=== PATIENT | male | born 1955 ===

== ENCOUNTER 2017-07-17 13:52 | Inpatient (IN) | payer OTHER ==
[~2017-07-17] VITALS: Ht 170.2 cm; Wt 68.0 kg
[2017-07-17] MEDS ORDERED: Z GUARD REMEDY PASTE 57 GM TUBE TOP PRN (14:45)
[2017-07-17] MEDS ORDERED: DIPH25CA83 PO (15:15)
[2017-07-17] MEDS ORDERED: ASPI-612 PO (15:15)
[2017-07-17] MEDS ORDERED: BUTA1CAP46 PO (15:15)
[2017-07-17] MEDS ORDERED: ACET-2154 PO (15:15)
[2017-07-17] MEDS ORDERED: RIVA10TA PO (15:15)
[2017-07-17] MEDS ORDERED: HYDR-3326 PO (15:15)
[2017-07-17] MEDS ORDERED: BISA-79 RC (15:15)
[2017-07-17] MEDS ORDERED: HYDR1SYR4 IJ (15:15)
[2017-07-17] MEDS ORDERED: DRON2.5C3 PO (15:15)
[2017-07-17] MEDS ORDERED: ONDA4TAB8 PO (15:15)
[2017-07-17] MEDS ORDERED: MAGN296S PO (15:15)
[2017-07-17] MEDS ORDERED: MAG30ORA GT (15:15)
[2017-07-17] MEDS ORDERED: FERR325T28 PO (15:15)
[2017-07-17] MEDS ORDERED: SENN-18 PO (15:15)
[2017-07-17] MEDS ORDERED: CLON0.1T PO (15:15)
[2017-07-17] MEDS ORDERED: DOCU100T2 PO (15:15)
[2017-07-17] MEDS ORDERED: ZOLP10TA2 PO (15:15)
[2017-07-17] MEDS ORDERED: PANT40TA4 PO (15:15)
--- NOTE | 2017-07-17 16:03 | NUR ---
pt arrived in the unit with ambulance from [facility]. pt vitals stable. pt arrived with an immobilizer.pt was ssupposed to be seen by dr whatley for dressing change but was not visited by md on [place]. will call for follow up. all pertinent assessments done. pt continues to to be alert and oriented. no pain noted. belongings list reconciled and placed on chart. mrsa swab done and sent to lab. pt applied dvt pumps on. pt on cpm machine see orders. meds reconciled. awaiting md to reconcile. pt assessed by pt and ot. pt is min assist. pt also uses walker. pt continues to be constipated last bm on thursday.
[2017-07-17 16:19] VITALS: BP 109/80
--- NOTE | 2017-07-17 17:28 | NUR ---
contacted md franco. pt will have meds continued as prescirbed.
--- NOTE | 2017-07-17 19:18 | NUR ---
pt stable throughout the day. pt had cpm machine off. complains of no pain. informed [facility] to continue the meds. he said that md rosen have to do it in the computer. pt assisted to the restroom. pt stable throughout the day. will endorse to python architect.
[2017-07-17] MEDS ORDERED: OXYCODONE/APAP 5-325 MG TABLET PO PRN (20:00)
[2017-07-17] MEDS ORDERED: KETOROLAC TROMETHAMINE 60 MG INJ IM ONE (20:00)
[2017-07-17 21:16] VITALS: BP 110/76
--- NOTE | 2017-07-18 03:59 | NUR ---
received patient in bed resting. . aaox4 complained of having pain on the left knee. seen by Dr Mckoy, ordered toradol 60mg IM, given thru left deltoid. needs attended. vital signs stable. voiding well in tthe urinal. felt much better after receiving toradol. relief noted. left knee has a leg immobilizer intact with an karl wrap dressing clean and dry. patient to be seen in AM by Dr Orr. Needs attended. Will monitor patient.CPM tolerated earlier on dayshift.
--- NOTE | 2017-07-18 07:10 | NUR ---
Received patient asleep, lying on bed on a semi- sheriff's position with no SOB, distress or discomforts noted. Easily aroused with call light within reach. All needs attended and anticipated. Will continue to monitor.
[2017-07-18 07:55] LABS: CREATININE 1.1 mg/dL (0.6-1.3); MAGNESIUM 1.8 mg/dL (1.8-2.4); PHOSPHOROUS 3.8 mg/dL (2.5-4.9); POTASSIUM 4.3 mmol/L (3.5-5.1)
[2017-07-18 08:05] LABS: BASOPHILS # (AUTO) 0.1 K/uL (0.0-8.0); BASOPHILS % (AUTO) 0.9 % (0.0-2.0); EOSINOPHILS # (AUTO) 0.4 K/uL (0.0-0.7); EOSINOPHILS % (AUTO) 6.6 % (0.0-7.0); HEMATOCRIT 33.1 % (40-50); HEMOGLOBIN 10.9 G/DL (14.0-18.0); LYMPHOCYTES % (AUTO) 16.2 % (20.5-51.5); MEAN CORPUSCULAR HEMOGLOBIN 27.9 UUG (27.0-31.0); MEAN CORPUSCULAR HGB CONC 33 g/dL (32.0-37.0); MEAN CORPUSCULAR VOLUME 84.5 FL (82.0-92.0); MONOCYTES # (AUTO) 0.5 K/UL (0.1-1.30); NEUTROPHILS % (AUTO) 67.3 % (38.5-71.5); PLATELET COUNT (AUTO) 322 K/UL (150-450); RED BLOOD CELL COUNT(AUTO) 3.92 MIL/UL (4.7-6.1)
[2017-07-18 08:40] VITALS: BP 103/69
[2017-07-18] MEDS: OXYCODONE/APAP 5-325 MG TABLET PO PRN (09:10)
--- NOTE | 2017-07-18 09:53 | NUR ---
Called Dr. Orr's office to follow- up with the left surgical dressing order but Dr. Orr's office is close. patient informed and agreed. Will endorse to be followed- up.
--- NOTE | 2017-07-18 13:26 | NUR ---
PATIENT NOTED AWAKE, LYING ON BED RESTING WITH NO SOB, DISTRESS OR ANY COMPLAINTS OF DISCOMFORTS AT THIS TIME. SEEN AND EXAMINED BY DR. WASSERMAN WITH NO ORDERS AT THIS TIME. REMINDED MD REGARDING THE MEDICATION RECONCILIATION. PER MD HE WILL DO IT. ALL NEEDS WERE ATTENDED AND ANTICIPATED. CALL LIGHT PLACED WITHIN REACH. ENCOURAGED PATIENT TO USE CALL LIGHT WHENEVER ASSISTANCE IS NEEDED. WILL CONTINUE TO MONITOR.
[2017-07-18] MEDS ORDERED: HYDROCODONE/APAP 5-325MG TABLET PO STA (16:12)
[2017-07-18] MEDS ORDERED: Medication Not On Formulary EA (Diphenhydramine Hcl (Benadryl) 25 MG) PO SCH (16:15)
[2017-07-18] MEDS ORDERED: CLONIDINE HCL 0.1 MG TABLET PO PRN (16:15)
[2017-07-18] MEDS ORDERED: BISACODYL 5 MG TABLET.DR PO SCH (16:15)
[2017-07-18] MEDS ORDERED: Medication Not On Formulary EA (Zolpidem Tartrate (Ambien) 10 MG) PO SCH (16:15)
[2017-07-18] MEDS ORDERED: SENNOSIDES 1 TABLET PO PRN (16:15)
[2017-07-18] MEDS ORDERED: MAG HYDROX/AL HYDROX/SIMETH 30 ML LIQUID UDC GT SCH (16:15)
[2017-07-18] MEDS ORDERED: ACETAMINOPHEN 325 MG TABLET PO PRN (16:15)
[2017-07-18] MEDS ORDERED: Medication Not On Formulary EA (Docusate Sodium 100 MG) PO SCH (17:00)
[2017-07-18] MEDS ORDERED: ZOLPIDEM 5 MG TABLET PO PRN (17:00)
[2017-07-18] MEDS ORDERED: MAG HYDROX/AL HYDROX/SIMETH 30 ML LIQUID UDC PO PRN (17:00)
[2017-07-18] MEDS ORDERED: diphenhydrAMINE 25 MG CAP PO PRN (17:00)
[2017-07-18] MEDS: RIVAROXABAN 10 MG TABLET PO SCH (17:27)
[2017-07-18] MEDS: FERROUS SULFATE 325 MG TABEC PO SCH (17:29)
--- NOTE | 2017-07-18 19:13 | NUR ---
Patient stable throughout the day with no SOB or any distress noted. All needs were attended and anticipated. call light within reach. Will endorse to incoming shift.
--- NOTE | 2017-07-18 19:30 | NUR ---
Patient awake with no s/s of acute distress. C/o some pain, will continue to monitor. Call light within reach. Encouraged to call for help whenever necessary.
[2017-07-18 20:14] VITALS: BP 109/64
[2017-07-18] MEDS: PANTOPRAZOLE SODIUM 40 MG TABLET.DR PO SCH (20:22)
[2017-07-18] MEDS: DOCUSATE SODIUM 100 MG CAPSULE PO SCH (20:22)
[2017-07-18] MEDS: DRONABINOL 2.5 MG CAPSULE PO SCH (20:22)
--- NOTE | 2017-07-19 06:21 | NUR ---
Patient asleep with no s/s of acute distress. Slept well through the night. Call light kept within reach. Due meds given. Needs attended. Comfort and safety measures in place. Frequent checks done. Endorsed accordingly.
--- NOTE | 2017-07-19 07:05 | NUR ---
Received patient awake, alert and oriented, watching television with no SOB, distress or complaints of pain at this time. All needs were attended and anticipated. Placed call light within reach. Encouraged patient to use call light whenever assistance is needed. Will continue to monitor.
[2017-07-19 08:24] VITALS: BP 107/76
[2017-07-19] MEDS: ASPIRIN 325 MG TABLET PO SCH (08:24)
[2017-07-19] MEDS: DOCUSATE SODIUM 100 MG CAPSULE PO SCH ×2 (08:24→20:08)
[2017-07-19] MEDS: FERROUS SULFATE 325 MG TABEC PO SCH ×2 (08:24→16:49)
[2017-07-19] MEDS: OXYCODONE/APAP 5-325 MG TABLET PO PRN ×2 (09:08→20:11)
--- NOTE | 2017-07-19 09:30 | NUR ---
patient awake, alert noted doing exercises with the physical therapist in the rehab room. Tolerating well his therapy. Will continue to monitor.
--- NOTE | 2017-07-19 15:28 | NUR ---
PATIENT AWAKE, ALERT LYING ON BED WITH HIS CPM ON PLACED BY PT. PATIENT TOLERATING WELL THE THERAPY. CALL LIGHT WITHIN REACH. ENCOURAGED PATIENT TO USE CALL LIGHT WHENEVER ASSISTANCE IS NEEDED.
[2017-07-19] MEDS: RIVAROXABAN 10 MG TABLET PO SCH (16:49)
--- NOTE | 2017-07-19 18:26 | NUR ---
PATIENT AWAKE, ALERT AND ORIENTED WITH NO SOB OR DISTRESS NOTED. NO COMPLAINTS OF PAIN OR ANY DISCOMFORTS AT THIS TIME. ALL NEEDS WERE ATTENDED AND ANTICIPATED. ENCOURAGED PATIENT TO USE CALL LIGHT WHENEVER ASSISTANCE IS NEEDED. WILL CONTINUE TO MONITOR.
--- NOTE | 2017-07-19 19:35 | NUR ---
RECEIVED PATIENT IN BED ALERT ORIENTED, NO SOB NO CHEST PAIN, CONT ON PAIN MANAGEMENT OF L KNEE REPLACEMENT, KEPT CLEAN AND DRY AND COMFORTABLE, PATIENT USING CPM MACHINE TOLERATED, CONT TO MONITOR.
[2017-07-19] MEDS: PANTOPRAZOLE SODIUM 40 MG TABLET.DR PO SCH (20:08)
[2017-07-19] MEDS: DRONABINOL 2.5 MG CAPSULE PO SCH (20:08)
[2017-07-19 20:15] VITALS: BP 99/67
--- NOTE | 2017-07-20 06:41 | NUR ---
PATIENT SLEPT MOST OF THE NIGHT NO SOB NO CHEST PAIN, L LEG WITH LEG BRACE IN PLACE, CONT ON PAIN MANAGEMENT, CALL LIGHT WITHIN REACH.
[2017-07-20 08:00] VITALS: BP 89/58
[2017-07-20] MEDS: DOCUSATE SODIUM 100 MG CAPSULE PO SCH ×2 (08:13→20:40)
[2017-07-20] MEDS: ASPIRIN 325 MG TABLET PO SCH (08:13)
[2017-07-20] MEDS: FERROUS SULFATE 325 MG TABEC PO SCH ×2 (08:13→16:39)
[2017-07-20] MEDS: OXYCODONE/APAP 5-325 MG TABLET PO PRN ×2 (08:14→18:42)
--- NOTE | 2017-07-20 10:17 | NUR ---
contacted md Hubbard for incision site orders. ordered to have incision site cleaned with ns pat dry and apply surgical dressing. have karl bandage removed. pt will have an appointment at 07/28 12:45 PM.
--- NOTE | 2017-07-20 15:50 | NUR ---
Post surgical dressing changed as ordered by MD. area cleaned with normal saline. Surgical incision well approximated, bruno in place, scant bleeding noted to upper surgical site, approximately 2cmL. 0.0w. No redness, swelling noted no pain reported. Area left covered with dry dressing, and covered with abd. band, wrap with karl bandage.
[2017-07-20] MEDS: RIVAROXABAN 10 MG TABLET PO SCH (16:40)
--- NOTE | 2017-07-20 19:30 | NUR ---
resting in bed aaox4 needs attended. left knee dressing clean dry and intact. no acute distress noted. will monitor patient. denies any pain at this time. voiding well.
[2017-07-20 20:10] VITALS: BP 100/64
[2017-07-20] MEDS: PANTOPRAZOLE SODIUM 40 MG TABLET.DR PO SCH (20:40)
[2017-07-20] MEDS: DRONABINOL 2.5 MG CAPSULE PO SCH (20:40)
--- NOTE | 2017-07-21 04:27 | NUR ---
quiet night. no acute distress noted. voiding freely. denies any pain nor any discomfort left knee dressing intact. appointment today with Dr Orr (ortho) attended to needs.
--- NOTE | 2017-07-21 07:30 | NUR ---
patient noted sleeping in bed, states pain level is a 3 at this time, denies need for pain medication, no signs of distress noted, call light in reach, bed locked and lowered
[2017-07-21] MEDS: ASPIRIN 325 MG TABLET PO SCH (08:15)
[2017-07-21] MEDS: FERROUS SULFATE 325 MG TABEC PO SCH ×2 (08:15→17:31)
[2017-07-21] MEDS: DOCUSATE SODIUM 100 MG CAPSULE PO SCH ×2 (08:15→20:30)
[2017-07-21] MEDS: OXYCODONE/APAP 5-325 MG TABLET PO PRN ×2 (08:16→14:40)
[2017-07-21 08:48] VITALS: BP 101/68
[2017-07-21] MEDS: RIVAROXABAN 10 MG TABLET PO SCH (17:31)
[2017-07-21 20:12] VITALS: BP 102/65
[2017-07-21] MEDS: DRONABINOL 2.5 MG CAPSULE PO SCH (20:30)
[2017-07-21] MEDS: PANTOPRAZOLE SODIUM 40 MG TABLET.DR PO SCH (20:30)
--- NOTE | 2017-07-21 20:30 | NUR ---
resting in bed watching TV. left knee on CPM tolerated well. denies any pain nor any discomfort.vital signs stable. will monitor patient voiding well. attended to needs. took meds without difficulty.
[2017-07-22] MEDS: OXYCODONE/APAP 5-325 MG TABLET PO PRN ×3 (02:03→16:18)
--- NOTE | 2017-07-22 05:33 | NUR ---
quiet night. slept well. needs attended. voiding well. no acute distress noted. left knee dressing clean and `intact.will monitor patient.
--- NOTE | 2017-07-22 07:56 | NUR ---
PATIENT NOTED LAYING IN BED, COMPLAINS OF PAIN LEVEL 6/10, NO SIGNS OF DISTRESS, CALL LIGHT IN REACH, BED LOCKED AND IN LOWEST POSITION
[2017-07-22 08:30] VITALS: BP 82/56
[2017-07-22] MEDS: FERROUS SULFATE 325 MG TABEC PO SCH ×2 (08:55→16:18)
[2017-07-22] MEDS: DOCUSATE SODIUM 100 MG CAPSULE PO SCH ×2 (08:55→20:25)
[2017-07-22] MEDS: ASPIRIN 325 MG TABLET PO SCH (08:55)
--- NOTE | 2017-07-22 14:07 | NUR ---
INTERDISCIPLINARY TEAM SUMMARY
[2017-07-22] MEDS: RIVAROXABAN 10 MG TABLET PO SCH (16:17)
[2017-07-22 19:45] VITALS: BP 111/71
--- NOTE | 2017-07-22 19:58 | NUR ---
RECEIVED PATIENT RESTING IN BED AAOX4 CPM TO LEFT LEG. DENIES ANY PAIN AT THIS TIME. VITAL SIGNS STABLE. WILL MONITOR PATIENT. NO ACUTE DISTRESS NOTED.`
[2017-07-22] MEDS: DRONABINOL 2.5 MG CAPSULE PO SCH (20:25)
[2017-07-22] MEDS: PANTOPRAZOLE SODIUM 40 MG TABLET.DR PO SCH (20:25)
[2017-07-22] MEDS: ATORVASTATIN 10 MG TABLET PO SCH (20:25)
--- NOTE | 2017-07-23 05:16 | NUR ---
slept most of the shift. voiding well. left knee dressing intact. no complaints presented during shift. no acute distress.
[2017-07-23 07:26] LABS: BASOPHILS % (AUTO) 0.6 % (0.0-2.0); EOSINOPHILS # (AUTO) 0.3 K/uL (0.0-0.7); EOSINOPHILS % (AUTO) 5.3 % (0.0-7.0); HEMOGLOBIN 10.6 g/dL (12.5-16.3); LYMPHOCYTES # (AUTO) 0.7 K/uL (20.0-40.0); LYMPHOCYTES % (AUTO) 11.7 % (20.5-51.5); MEAN CORPUSCULAR HGB CONC 34 g/dL (32.5-36.3); MONOCYTES # (AUTO) 0.6 K/uL (2.0-10.0); MONOCYTES % (AUTO) 9.5 % (0.0-11.0); NEUTROPHILS # (AUTO) 4.6 K/uL (1.8-8.9); NEUTROPHILS % (AUTO) 72.9 % (38.5-71.5); PLATELET COUNT (AUTO) 366 K/uL (152-348); RED BLOOD CELL COUNT(AUTO) 3.65 MIL/uL (4.06-5.63); WHITE BLOOD COUNT (AUTO) 6.3 K/uL (3.6-10.2)
--- NOTE | 2017-07-23 07:50 | NUR ---
PATIENT NOTED RESTING IN BED WITH EYES CLOSED, COMPLAINS OF PAIN 02/14, NO SIGNS OF DISTRESS NOTED, CALL LIGHT IN REACH, BED LOCKED AND IN LOWEST POSITION
[2017-07-23 07:52] LABS: THYROID STIMULATING HORMONE 1.32 mIU/mL (0.358-3.740)
[2017-07-23 08:09] LABS: BILIRUBIN,TOTAL 0.4 mg/dL (0.2-1.0); CREATININE 1.1 mg/dL (0.6-1.3); MAGNESIUM 1.6 mg/dL (1.8-2.4); PHOSPHOROUS 3.4 mg/dL (2.5-4.9); POTASSIUM 4.1 mmol/L (3.5-5.1); TOTAL PROTEIN, SERUM 6.9 g/dL (6.4-8.2)
[2017-07-23] MEDS: OXYCODONE/APAP 5-325 MG TABLET PO PRN ×2 (08:20→17:38)
[2017-07-23] MEDS: ASPIRIN EC 81 MG TABLET.DR PO SCH (08:20)
[2017-07-23] MEDS: DOCUSATE SODIUM 100 MG CAPSULE PO SCH ×2 (08:20→20:21)
[2017-07-23] MEDS: FERROUS SULFATE 325 MG TABEC PO SCH ×2 (08:20→17:38)
[2017-07-23] MEDS ORDERED: MAGNESIUM OXIDE 400 MG TABLET PO ONE (12:45)
[2017-07-23] MEDS ORDERED: INFLUENZA VACCINE 2017-2018 0.5 ML DISP.SYRIN IM ONE (13:00)
[2017-07-23] MEDS: RIVAROXABAN 10 MG TABLET PO SCH (17:36)
--- NOTE | 2017-07-23 19:30 | NUR ---
RECEIVED PATIENT FROM DAY SHIFT NURSE. PT LYING COMFORTABLY IN BED. SHIFT REPORT AT BEDSIDE. PT A/O X4 WITH NO SIGNS OF PAIN, SOB, OR ACUTE DISTRESS. PERTINENT ASSESSMENTS COMPLETED. CALL LIGHT PLACED WITHIN REACH OF PATIENT. WILL CONTINUE TO MONITOR PT THROUGH OUT SHIFT.
[2017-07-23 19:40] VITALS: BP 108/70
[2017-07-23] MEDS: PANTOPRAZOLE SODIUM 40 MG TABLET.DR PO SCH (20:21)
[2017-07-23] MEDS: ATORVASTATIN 10 MG TABLET PO SCH (20:21)
[2017-07-23] MEDS: DRONABINOL 2.5 MG CAPSULE PO SCH (20:21)
[2017-07-24] MEDS: OXYCODONE/APAP 5-325 MG TABLET PO PRN ×3 (02:58→17:21)
--- NOTE | 2017-07-24 06:48 | NUR ---
PATIENT STABLE THROUGH OUT SHIFT. NO SIGNS OF SOB OR ACUTE DISTRESS. SLEPT WELL DURING THE NIGHT. ALL NEEDS ATTENDED TO. MEDICATIONS ADMINISTERED ORDERED. SAFETY MEASURES IMPLEMENTED. CALL LIGHT PLACED WITHIN REACH. WILL ENDORSE TO DAY SHIFT NURSE.
[2017-07-24] MEDS: ASPIRIN EC 81 MG TABLET.DR PO SCH (08:44)
[2017-07-24] MEDS: FERROUS SULFATE 325 MG TABEC PO SCH ×2 (08:44→17:16)
[2017-07-24] MEDS: DOCUSATE SODIUM 100 MG CAPSULE PO SCH ×2 (08:44→20:32)
--- NOTE | 2017-07-24 10:39 | NUR ---
pt seen on rounding. pt bp elevated. pt given meds whole. pt given 2 tabs pain meds for pain scale of 7/10. pt given scheduled. will continue to monitor.
[2017-07-24] MEDS: RIVAROXABAN 10 MG TABLET PO SCH (17:17)
--- NOTE | 2017-07-24 18:24 | NUR ---
wound picture taken. no signs of infection. pt took pain meds for pain. pt given 2 tabs for pain. will endorse to steward/stewardess night nurse.
--- NOTE | 2017-07-24 19:30 | NUR ---
RECEIVED PATIENT FROM DAY SHIFT NURSE. SHIFT REPORT AT BEDSIDE. PATIENT LYING COMFORTABLY IN BED. NO SIGNS OF PAIN, SOB, OR ACUTE DISTRESS. PERTINENT ASSESSMENT COMPLETED. SAFETY MEASURES TO BE IMPLEMENTED. CALL LIGHT PLACED WITHIN REACH OF PATIENT. WILL CONTINUE TO MONITOR PATIENT THROUGH OUT SHIFT.
[2017-07-24 19:40] VITALS: BP 102/64
[2017-07-24] MEDS: PANTOPRAZOLE SODIUM 40 MG TABLET.DR PO SCH (20:32)
[2017-07-24] MEDS: ATORVASTATIN 10 MG TABLET PO SCH (20:32)
[2017-07-24] MEDS: DRONABINOL 2.5 MG CAPSULE PO SCH (20:32)
[2017-07-25] MEDS: OXYCODONE/APAP 5-325 MG TABLET PO PRN ×3 (01:11→20:43)
--- NOTE | 2017-07-25 06:42 | NUR ---
PATIENT STABLE THROUGH OUT SHIFT WITH NO SIGNS OF ACUTE DISTRESS OR SOB. PATIENT SLEPT WELL THROUGH THE NIGHT. ALL MEDICATIONS ADMINISTERED ORDERED PER MD. ALL NEEDS ATTENDED TO. SAFETY MEASURES IMPLEMENTED. CALL LIGHT WITHIN REACH OF PATIENT. WILL ENDORSE TO DAY SHIFT NURSE.
[2017-07-25 07:30] VITALS: BP 98/50
[2017-07-25] MEDS: FERROUS SULFATE 325 MG TABEC PO SCH ×2 (08:29→16:10)
[2017-07-25] MEDS: ASPIRIN EC 81 MG TABLET.DR PO SCH (08:29)
[2017-07-25] MEDS: DOCUSATE SODIUM 100 MG CAPSULE PO SCH ×2 (08:29→20:41)
--- NOTE | 2017-07-25 09:12 | NUR ---
PT SEEN ON ROUNDING. pt vitals stable. pt given meds whole. pt given to reduce pain of 7/10 on left knee. pt wants to be left. alone. will attend to needs.
--- NOTE | 2017-07-25 15:23 | NUR ---
pt put on cpm machine at 1130. pt only suppose to have it on for 2 hours. checked patient. pt wants to keep it on. cpm machine adjusted by physical therapy. left machine on. no signs of pain. will continue to monitor.
[2017-07-25] MEDS: RIVAROXABAN 10 MG TABLET PO SCH (16:10)
--- NOTE | 2017-07-25 18:42 | NUR ---
pt stable throughout the day. pt wanted to have cpm on even if pass the time. no pain given. will endorse to shift leader nurse.
--- NOTE | 2017-07-25 19:30 | NUR ---
RECEIVED PATIENT FROM DAY SHIFT NURSE. SHIFT REPORT AT BEDSIDE. PATIENT LYING COMFORTABLY IN BED WITH NO SIGNS OF PAIN, SOB, OR ACUTE DISTRESS. PERTINENT ASSESSMENT COMPLETED. SAFETY MEASURES TO BE IMPLEMENTED. CALL LIGHT PLACED WITHIN REACH OF PATIENT. WILL CONTINUE TO MONITOR PT THROUGH OUT SHIFT.
[2017-07-25 19:40] VITALS: BP 137/82
[2017-07-25] MEDS: DRONABINOL 2.5 MG CAPSULE PO SCH (20:41)
[2017-07-25] MEDS: ATORVASTATIN 10 MG TABLET PO SCH (20:41)
[2017-07-25] MEDS: PANTOPRAZOLE SODIUM 40 MG TABLET.DR PO SCH (20:41)
--- NOTE | 2017-07-26 06:49 | NUR ---
PT SLEPT WELL THROUGH THE SHIFT. NO SIGNS OF PAIN, ACUTE DISTRESS, OR SOB. ABLE TO MAKE NEEDS KNOWN. VITALS STABLE THROUGH SHIFT. MEDS ADMINISTERED ORDERED. SAFETY MEASURES IMPLEMENTED. CALL LIGHT WITHIN REACH OF PATIENT. WILL ENDORSE TO DAY SHIFT NURSE.
[2017-07-26 07:10] VITALS: BP 110/71
[2017-07-26] MEDS: ASPIRIN EC 81 MG TABLET.DR PO SCH (08:16)
[2017-07-26] MEDS: FERROUS SULFATE 325 MG TABEC PO SCH ×2 (08:16→16:25)
[2017-07-26] MEDS: DOCUSATE SODIUM 100 MG CAPSULE PO SCH ×2 (08:16→20:04)
[2017-07-26] MEDS: OXYCODONE/APAP 5-325 MG TABLET PO PRN ×2 (08:49→14:36)
--- NOTE | 2017-07-26 09:29 | NUR ---
pt seen on rounding. pt complains of off and on pain during the night. pt given 2 tabs percocet. no signs of infection or drainage on site. pt will participate in therapy. will continue to monitor.
[2017-07-26] MEDS: RIVAROXABAN 10 MG TABLET PO SCH (16:25)
--- NOTE | 2017-07-26 18:38 | NUR ---
[pt stable throughout the day. pt asks for pain meds and were given. pt participated in therapy and was put on cpm. pt states that he would like something more stronger for pain but if not changed then it would be ok. pt had no infection during shift. will endorse to media professional nurse.
--- NOTE | 2017-07-26 19:30 | NUR ---
Received patient in bed. Alert and verbally responsive. Able to make needs known. Denies any pain and discomfort at this time. No acute distress. No SOB. Kept clean and dry. CPM applied to left leg at this time. Tolerating well. All needs attended to promptly. Call light within reach. Will continue to monitor.
[2017-07-26 19:45] VITALS: BP 109/66
[2017-07-26] MEDS: PANTOPRAZOLE SODIUM 40 MG TABLET.DR PO SCH (20:04)
[2017-07-26] MEDS: DRONABINOL 2.5 MG CAPSULE PO SCH (20:04)
[2017-07-26] MEDS: ATORVASTATIN 10 MG TABLET PO SCH (20:04)
[2017-07-27] MEDS: OXYCODONE/APAP 5-325 MG TABLET PO PRN ×4 (02:38→17:30)
[2017-07-27 07:10] VITALS: BP 124/79
--- NOTE | 2017-07-27 08:16 | NUR ---
Patient eating meal at this time. Needs met.
[2017-07-27] MEDS: FERROUS SULFATE 325 MG TABEC PO SCH ×2 (08:45→17:00)
[2017-07-27] MEDS: DOCUSATE SODIUM 100 MG CAPSULE PO SCH ×2 (08:45→20:44)
[2017-07-27] MEDS: ASPIRIN EC 81 MG TABLET.DR PO SCH (08:45)
--- NOTE | 2017-07-27 09:06 | NUR ---
Patient identification band replacement as it would not scan for medication pass.
[2017-07-27] MEDS: RIVAROXABAN 10 MG TABLET PO SCH (16:59)
--- NOTE | 2017-07-27 18:38 | NUR ---
Handoff for night nurse.
--- NOTE | 2017-07-27 20:30 | NUR ---
Received pt on bed alert and oriented x3. Calm and cooperative to care. No acute distress noted. Denies pain. Breathing even and unlabored with normal respirations. All due meds given as ordered and well tolerated. Call light within reach. All needs met.
[2017-07-27] MEDS: DRONABINOL 2.5 MG CAPSULE PO SCH (20:44)
[2017-07-27] MEDS: PANTOPRAZOLE SODIUM 40 MG TABLET.DR PO SCH (20:44)
[2017-07-27] MEDS: ATORVASTATIN 10 MG TABLET PO SCH (20:44)
[2017-07-27 21:36] VITALS: BP 141/66
--- NOTE | 2017-07-28 05:35 | NUR ---
Patient slept well throughout the shift. No s/s of distress. Denies pain or discomfort. Frequently checked for safety. Call light placed within reach. All needs anticipated.
[2017-07-28 07:39] VITALS: BP 130/76
--- NOTE | 2017-07-28 08:00 | NUR ---
VSS 98.0-84-18 TO 22 BP 130/76. SATS 99% N ROOM AIR. PATIENT IS A&O X 3 WITH APPROPRIATE AFFECT. SKIN WARM, DRY, AND INTACT THROUGHOUT. PATIENT HAS A CLEAN, DRY, AND INTACT DRESSING TO LEFT KNEE WHERE PATIENT UNDERWENT A REVISION OF LEFT KNEE SURGERY IN THE PAST. PATIENT HAS NO NEUROVASCULAR CIRC CHECK DEFICITS TO LEFT LEG WITH +ROM AND SENSATION TO BLE. GOOD STRONG PEDAL PULSES EASILY PALPABLE. NURSE WILL PREMEDICATED PATIENT WITH 2 PERCOCETS WITH HIS 0900 MEDS PATIENT WILL HAVE PHYSICAL THERAPY EARLY THIS MORNING. PATIENT SHOWS NO SIGNS OF ACUTE CARDIAC/RESPIRATORY DISTRESS OR SUPPRESSION.
--- NOTE | 2017-07-28 08:30 | NUR ---
I Agree Addendum: 07/28/17 at 0830 by VLADIMIR MI OT Amended: Links added.
[2017-07-28] MEDS: DOCUSATE SODIUM 100 MG CAPSULE PO SCH ×2 (09:02→20:40)
[2017-07-28] MEDS: ASPIRIN EC 81 MG TABLET.DR PO SCH (09:03)
[2017-07-28] MEDS: FERROUS SULFATE 325 MG TABEC PO SCH ×2 (09:03→16:49)
[2017-07-28] MEDS: OXYCODONE/APAP 5-325 MG TABLET PO PRN ×2 (09:04→18:20)
--- NOTE | 2017-07-28 13:20 | NUR ---
I agree Addendum: 07/28/17 at 1321 by VLADIMIR MI OT Amended: Links added.
--- NOTE | 2017-07-28 13:21 | NUR ---
I agree Addendum: 07/28/17 at 1323 by VLADIMIR MI OT Amended: Links added.
--- NOTE | 2017-07-28 13:30 | NUR ---
PATIENT WENT FOR SURGEON CONSULT AND THE SURGEON REMOVED THE GEOVANNI AND PLACED FRQUENT THICK STERI STRIPS ALONG THE VERTICAL LEFT KNEE INCISION. THERE IS NO DRAINAGE AT ALL FROM THE LEFT KNEE INCISION. PATIENT DENIES PAINS AND SITS UP IN WHEELCHAIR EATING LUNCH WITHOUT ASSIST. PATIENT SHOWS NO SIGNS OF ACUTE CARDIAC/RESPIRATORY DISTRESS OR SUPPRESSION.
[2017-07-28] MEDS: RIVAROXABAN 10 MG TABLET PO SCH (16:52)
--- NOTE | 2017-07-28 18:30 | NUR ---
PATIENT USES CPM MACHINE TO LEFT LEG WITHOUT DIFFICULTY WITH FULL ROM. LEFT KNEE INCISION WITH STERI STRIPS, EXPOSED TO AIR, NO DRAINAGE, SWELLING, EVISCERATION OR OTHER SIGNS OF INFECTION. GOOD NEUROVASCULAR CIRC. CHECKS TO BLE WITH ALL PERIPHERAL PULSES EASILY PALPABLE. NURSE REMEDICATED PATIENT FOR 8/10 LEFT KNEE PAIN WITH PERCOCETS 2 PO PRN AT 18:20 P.M. PATIENT ATE 100% OF DINNER. PATIENT SHOWS NO SIGNS OF ACUTE CARDIAC/RESPIRATORY DISTRESS OR SUPPRESSION.
--- NOTE | 2017-07-28 19:30 | NUR ---
RECEIVED PATIENT FROM DAY SHIFT NURSE. SHIFT REPORT AT BEDSIDE. PATIENT A/O X4 LYING COMFORTABLY IN BED AT START OF SHIFT WITH NO SIGNS OF PAIN, SOB, OR ACUTE DISTRESS. PERTINENT ASSESSMENTS COMPLETED. WAS ENDORSED BY DAY SHIFT NURSE OF REMOVAL OF GEOVANNI BY SURGEON THIS AFTERNOON. STERI STRIPS PLACED ON LEFT KNEE INCISION. CALL LIGHT WITHIN REACH OF PATIENT. WILL CONTINUE TO MONITOR PATIENT THROUGH SHIFT.
[2017-07-28 20:03] VITALS: BP 111/74
[2017-07-28] MEDS: PANTOPRAZOLE SODIUM 40 MG TABLET.DR PO SCH (20:40)
[2017-07-28] MEDS: ATORVASTATIN 10 MG TABLET PO SCH (20:40)
[2017-07-28] MEDS: DRONABINOL 2.5 MG CAPSULE PO SCH (20:41)
[2017-07-29] MEDS: OXYCODONE/APAP 5-325 MG TABLET PO PRN ×2 (01:49→08:18)
--- NOTE | 2017-07-29 06:55 | NUR ---
Patient slept well through shift. Pt stable with no signs of acute distress or SOB. Able to make needs known. All meds administered as ordered per MD. Vital signs stable through shift. Pt noted with steri strips on Left knee incision. Left knee steri strips changed. Call light within reach of pt. Will endorse to day shift nurse.
[2017-07-29] MEDS: DOCUSATE SODIUM 100 MG CAPSULE PO SCH (08:11)
[2017-07-29] MEDS: FERROUS SULFATE 325 MG TABEC PO SCH (08:11)
[2017-07-29] MEDS: ASPIRIN EC 81 MG TABLET.DR PO SCH (08:11)
[2017-07-29 08:31] VITALS: BP 85/49
[2017-07-29 09:12] VITALS: BP 109/68
--- NOTE | 2017-07-29 13:57 | NUR ---
SBAR report received from Edie INGRAM caustic cresylate shift superintendent. Pt board updated. Pt assessed, no c/o pain or SOB at this time. Plan of care for today discussed. All comfort and safety measures met. Will continue to monitor and prepare d/c paperwork for expected discharge around 1600.
--- NOTE | 2017-07-29 14:13 | NUR ---
Pt had bowel movement in diaper, stool sample collected and sent to lab. Pt assisted, clean, dry, and ointment applied. Will f/u for results r/t if continued isolation is still required.
--- NOTE | 2017-07-29 16:41 | NUR ---
Pt v/s taken 102/67, 98% on RA, 83 pulse, 19 RR, and 97.6 temp. Pt education, and discharge documents, along with medication list discussed and signed. Pt provided with original papers and copies placed in chart. Pt denies pain and shows no s/s of distress at this time just eager to leave. Flu shot previously administered on 07/23/17. Dr. Mckoy notified. Transportation arranged. Pt escorted to private car by wheelchair. Will remove Pt from system.
== END 2017-07-29 16:40 | disposition home or self-care (01) | DRG 949 ==
PROVIDERS: ADMIT Physical Medicine & Rehabilitation Pain Medicine; ATTEND Physical Medicine & Rehabilitation Pain Medicine
DX: T84.82XD Fibrosis due to internal orthopedic prosthetic devices, implants and grafts, subsequent encounter (principal); E44.0 Moderate protein-calorie malnutrition; K21.9 Gastro-esophageal reflux disease without esophagitis; T84.84XD Pain due to internal orthopedic prosthetic devices, implants and grafts, subsequent encounter; D63.8 Anemia in other chronic diseases classified elsewhere; E78.5 Hyperlipidemia, unspecified; M17.12 Unilateral primary osteoarthritis, left knee; Z96.642 Presence of left artificial hip joint; Z96.653 Presence of artificial knee joint, bilateral; Z74.09 Other reduced mobility; R53.1 Weakness; D64.9 Anemia, unspecified; R73.9 Hyperglycemia, unspecified
CPT/HCPCS: 36415; 82306; 83550; 83735; 84100; 84443; 85025; 90686; 92507; 92523; 97110; 97112; 97116; 97165; 97530; 97535; J1885; Q0167